=== PATIENT | female | born 1975 | race Caucasian/White ===

== ENCOUNTER 2025-02-11 18:31 | Observation (INO) ==
[2025-02-11] MEDS: SODIUM CHLORIDE 0.9% 1,000 ML IV ONE (19:28)
[2025-02-11] MEDS: KETOROLAC TROMETHAMINE 15 MG/ML VIAL IV ONE (19:32)
[2025-02-11] MEDS: ONDANSETRON INJ 2 MG/ML 2 ML VIAL IV STA (19:32)
--- NOTE | 2025-02-11 19:32 | Emergency Department Note ---
Impression & Plan Acute cholecystitis ED Provider Note NAME: YOGESH NASCIMENTO AGE: 49 SEX: F : 1975 ARRIVES VIA: Walk-In INFORMANT: Patient, ED PROVIDER(S): Isabel Hurtado MD CHIEF COMPLAINT: Nausea, vomiting HPI: This is a 49-year-old female presenting for nausea, vomiting abdominal pain. Patient notes that she has been on Zepbound for the past few months lost about 40 pounds. She notes that today around 11 AM she began having sudden onset severe nausea with vomiting patient has upper quad abdominal pain. She notes she is vomiting green bile. She notes no fevers or chills. No sinus congestion at this time. She did have a upper respiratory infection last week. No diarrhea or constipation. ROS: See above HPI for pertinent positives & negatives. A total of 10 systems reviewed and were otherwise negative. PAST MEDICAL HISTORY: See Below PAST SURGICAL HISTORY: See Below FAMILY HISTORY: See Below SOCIAL HISTORY: See Below HOME MEDICATIONS: See Below ALLERGIES: See Below VITALS: See Below PHYSICAL EXAMINATION: General: resting comfortably in no acute distress Head: Normocephalic and atraumatic Eyes: Normal inspection, extraocular muscles intact Ear, nose, throat: Normal external exam Neck: Normal range of motion Respiratory: lungs clear to auscultation bilaterally Cardiovascular: Regular rate/rhythm, no murmur GI: Right upper and epigastric tenderness to palpation without rebound Extremities: nontender, moves all extremities Neuro: The patient awake and alert, appropriately conversive, no focal deficits, symmetric faces Skin: Warm, dry, and intact MEDICAL DECISION MAKING: This is a 49-year-old female present for nausea, vomiting abdominal pain. Consider pancreatitis as patient is on Zepbound also consider cholecystitis. Consider appendicitis, diverticulitis, bowel perforation. -Blood reviewed with a leukocytosis to over 18 with left shift, otherwise slight hypokalemia. -No transaminitis or lipase elevation -CT imaging reveals acute cholecystitis. Exam is consistent with this with right upper quadrant tenderness/Guevara sign -Will give Zosyn at this time -Discussed Dr. Diaz general surgeon on-call, who will perform surgery in the a.m. -Discussed with Dr. Lemons for admission Differential diagnosis: Appendicitis, cholecystitis, diverticulitis, bowel perforation Diagnostics interpreted by me: ECG: None Cardiac Monitoring: An order was placed for continuous cardiac monitoring. The monitor shows a rate of 70 with sinus rhythm. 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 Degenerative disc disease History of COVID-19 Nov 06, 2021> tested with [facility] by [employer]> continues with mild cough, > had fever, loss of taste and smell > not hospitalized Hx of colonic polyps Lumbar herniated disc Lyme disease hx of Surgical History History of arthroscopy of right knee History of colonoscopy History of dilatation and curettage History of tooth extraction wisdom teeth 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 this, was due to Family History Father Family history of reaction to anesthesia nausea/vomiting Brother Family history of diabetes mellitus 2 brothers with type 1 Mother Family hx colonic polyps Family/Other Family hx colonic polyps maternal aunt Social History Smoking Status: Never smoker Cigarettes Per Day: just smokes off and on every few mos or so; Second Hand Exposure: No; Do You Dip or Chew Tobacco: No; Hx Alcohol Use: Yes Alcohol type: hard liquor Hx Substance Use: No Preferred Language: Greenlandic Communication Ability: Effective [employer] Supervisor Required: No Beliefs That Will Affect Care: None Current Living Situation: Family Current Living Situation Comment: Lives with son Feels Safe at Home: Yes Assistive Devices: Contacts and Glasses Allergies Allergies Allergy/AdvReac Type Severity Reaction Status Date / Time bupropion Allergy Unknown ITCHING Verified 01/17/22 08:30 Sulfa (Sulfonamide Allergy Unknown CORTEZ Verified 01/17/22 08:30 Antibiotics) JULIEN'S FLU SHOTS Allergy Unknown GOT REALLY Uncoded 01/17/22 08:30 SICK WITH A RASH Home Meds Home Medications Medication Instructions Recorded Confirmed ascorbic acid (vitamin C) 500 mg 500 mg PO HS 10/12/18 01/17/22 chewable tablet (Vitamin C) cetirizine 10 mg tablet (Zyrtec) 10 mg PO BID 10/12/18 01/17/22 cholecalciferol (vitamin D3) 25 1,000 unit PO HS 10/12/18 01/17/22 mcg (1,000 unit) capsule cyclobenzaprine 10 mg tablet 10 mg PO TID PRN Muscle Spasm 10/12/18 01/10/22 montelukast 10 mg tablet 10 mg PO DAILY PRN Allergy Symptoms 10/12/18 01/17/22 (Singulair) multivitamin with minerals-folic 1 tab PO HS 10/12/18 01/17/22 acid 200 mcg chewable tablet (Women's Multivitamin Gummies) omega 5-cgi-lub-fish oil 1,000 mg 1 cap PO HS 10/12/18 01/17/22 (120 mg-180 mg) capsule (Fish Oil) vitamin B complex 1 cap PO HS 10/12/18 01/17/22 collagen,hydrolysate 500 mg-biotin 1 cap PO HS 01/10/22 01/17/22 800 mcg-ascorbic acid 50 mg capsule (Collagen 1500 Plus C) ibuprofen 200 mg tablet 200 mg PO Q6H PRN Pain 01/10/22 01/17/22 Results & Data (ED) Vital Signs Vital Signs - 24 hr 02/11/25 18:35 02/11/25 18:42 02/11/25 19:40 Temperature 36.0 C L Temperature Source Temporal Artery Scan Pulse Rate 85 70 72 Pulse Rate [Left Radial] Pulse Rate from SpO2 Sensor Pulse Rhythm [Left Radial] Pulse Strength [Left Radial] Respiratory Rate 20 20 Respiratory Effort / Characteristics Respiratory Depth Respiratory Pattern Blood Pressure 190/100 H Blood Pressure [Right Arm] Blood Pressure Mean 130 Blood Pressure Mean [Right Arm] Blood Pressure Position [Right Arm] Pulse Oximetry 99 99 Oxygen Delivery Method Room Air Room Air Sepsis Recent Fever Within 48 Hours No Sepsis New/Unexplained Change in Mental Status N/A Sepsis Action Taken by Nursing No Action Required 02/11/25 20:32 02/11/25 22:00 02/11/25 23:00 Temperature Temperature Source Pulse Rate 76 Pulse Rate [Left Radial] 85 75 Pulse Rate from SpO2 Sensor 76 Pulse Rhythm [Left Radial] Regular Regular Pulse Strength [Left Radial] Normal Normal Respiratory Rate 17 16 20 Respiratory Effort / Characteristics Non-Labored Non-Labored Respiratory Depth Normal Normal Respiratory Pattern Regular Regular Blood Pressure Blood Pressure [Right Arm] 135/85 118/76 Blood Pressure Mean Blood Pressure Mean [Right Arm] 101 90 Blood Pressure Position [Right Arm] Lying Lying Pulse Oximetry 95 92 95 Oxygen Delivery Method Room Air Room Air Sepsis Recent Fever Within 48 Hours Sepsis New/Unexplained Change in Mental Status Sepsis Action Taken by Nursing 02/11/25 23:32 02/12/25 00:03 Temperature Temperature Source Pulse Rate 71 70 Pulse Rate [Left Radial] Pulse Rate from SpO2 Sensor 70 Pulse Rhythm [Left Radial] Pulse Strength [Left Radial] Respiratory Rate 15 Respiratory Effort / Characteristics Respiratory Depth Respiratory Pattern Blood Pressure 130/84 Blood Pressure [Right Arm] Blood Pressure Mean 99 Blood Pressure Mean [Right Arm] Blood Pressure Position [Right Arm] Pulse Oximetry 94 Oxygen Delivery Method Room Air Sepsis Recent Fever Within 48 Hours Sepsis New/Unexplained Change in Mental Status Sepsis Action Taken by Nursing Laboratory Data 02/11/25 19:00 02/11/25 19:00 Lab Results 02/11/25 Range/Units 19:00 WBC 18.34 H (4.8-10.8) K/ul RBC 5.03 (4.20-5.40) M/uL Hgb 16.2 H (12.0-16.0) g/dl Hct 44.7 (37.0-47.0) % MCV 88.9 (80.0-100.0) fL MCH 32.2 (25.0-34.0) pg MCHC 36.2 H (32.0-36.0) g/dL RDW Std Deviation 40.3 (36.4-46.3) fL RDW Coeff of Tanna 12.3 (11.5-14.5) % Plt Count 328 (130-400) K/uL MPV 10.7 (9.4-12.4) fL Immature Gran % (Auto) 0.4 % Neut % (Auto) 87.4 % Lymph % (Auto) 9.9 % Leslie % (Auto) 2.1 % Eos % (Auto) 0.0 % Baso % (Auto) 0.2 % Neut # (Auto) 16.02 H (1.40-6.50) K/uL Lymph # (Auto) 1.82 (1.20-3.40) K/uL Leslie # (Auto) 0.38 (0.11-0.59) K/uL Eos # (Auto) 0.00 (0.00-0.50) K/uL Baso # (Auto) 0.04 (0.00-0.20) K/uL Immature Gran # (Auto) 0.08 (0.01-0.20) K/uL Sodium 136 (136-145) mmol/L Potassium 3.3 L (3.5-5.1) mmol/L Chloride 102 (98-107) mmol/L Carbon Dioxide 25 (21-32) mmol/L Anion Gap 9 (3-11) BUN 7 (6-23) mg/dl Creatinine 0.72 (0.6-1.2) mg/dl Est Cr Clr Drug Dosing 125.7 ml/min eGFR 103.71 BUN/Creatinine Ratio 9.7 L (10-20) Glucose 136 H (70-99(Fasting)) mg/dl Calcium 9.1 (8.6-10.3) mg/dl Total Bilirubin 0.5 (0.2-1.0) mg/dl AST 13 (13-39) U/L ALT 12 (7-52) U/L Alkaline Phosphatase 95 (34-104) U/L Total Protein 7.1 (6.0-8.3) gm/dl Albumin 4.1 (3.4-5.0) gm/dl Globulin 3.0 (2.5-4.0) gm/dl Albumin/Globulin Ratio 1.4 (0.9-2) Lipase 7 L (11-82) U/L Administered Medications Discontinued Medications Hydromorphone HCl (Hydromorphone Inj 0.5 Mg/0.5 Ml Syr) 0.5 mg IV NOW STA Stop: 02/11/25 20:22 Last Admin: 02/11/25 20:38 Dose: 0.5 mg Documented By: SONYA Sodium Chloride (Nss) 1,000 mls @ 999 mls/hr IV .Q1H1M ONE Stop: 02/11/25 19:42 Last Infusion: 02/11/25 20:44 Dose: Infused Documented By: Admin: 02/11/25 19:28 Dose: 999 mls/hr Documented By: SONYA Piperacillin Sod/Tazobactam Sod (Zosyn) 4.5 gm in 100 mls @ 200 mls/hr IV NOW ONE; Protocol Stop: 02/12/25 00:21 Last Infusion: 02/12/25 00:24 Dose: Infused Documented By: Admin: 02/12/25 00:05 Dose: 200 mls/hr Documented By: AMIRA Ioversol (Optiray 320 100ml) 94 ml IV ONCE ONE Stop: 02/11/25 20:45 Last Admin: 02/11/25 20:44 Dose: 94 ml Documented By: JACKIE Ketorolac Tromethamine (Ketorolac Tromethamine 15 Mg/Ml Vial) 15 mg IV NOW ONE Stop: 02/11/25 19:24 Last Admin: 02/11/25 19:32 Dose: 15 mg Documented By: SONYA Ondansetron HCl (Ondansetron Inj 2 Mg/Ml 2 Ml Vial) 4 mg IV NOW STA Stop: 02/11/25 19:24 Last Admin: 02/11/25 19:32 Dose: 4 mg Documented By: SONYA Imaging Data Radiologist's Impression: Abdomen/Pelvis CT 02/11/25 19:23 Exam(s): CT ABDOMEN + PELVIS With Contrast IV Amt: 94 mls optiray 320 EXAM: CT Abdomen and Pelvis With Intravenous Contrast CLINICAL HISTORY: Reason for exam: RUQ/Epigastric pain, ailyn vs pancr vs appi. TECHNIQUE: Axial computed tomography images of the abdomen and pelvis with intravenous contrast. CTDI is 28.14 mGy and DLP is 1451.1 mGy-cm. Automated exposure control was utilized for the study. A dose lowering technique was utilized adhering to the principles of ALARA. CONTRAST: Patient received 94 mls optiray 320 of IV contrast COMPARISON: No relevant prior studies available. FINDINGS: Lung bases: Unremarkable. No mass. No consolidation. ABDOMEN: Liver: Unremarkable. No mass. Gallbladder and bile ducts: There is moderate gallbladder distention, mild gall bladder wall thickening and minimal pericholecystic stranding consistent with cholecystitis. Correlation with gallbladder ultrasound should be considered. No ductal dilation. Pancreas: Unremarkable. No mass. No ductal dilation. Spleen: Unremarkable. No splenomegaly. Adrenals: Unremarkable. No mass. Kidneys and ureters: Unremarkable. No solid mass. No hydronephrosis. Stomach and bowel: Unremarkable. No obstruction. No mucosal thickening. PELVIS: Appendix: No findings to suggest acute appendicitis. Bladder: Unremarkable. No mass. Reproductive: Unremarkable as visualized. ABDOMEN and PELVIS: Intraperitoneal space: Unremarkable. No free air. No significant fluid collection. Bones/joints: There is moderately advanced L5-S1 degenerative disc space narrowing and a circumferential disc osteophyte complex. No acute fracture. No dislocation. Soft tissues: Unremarkable. Vasculature: Unremarkable. No abdominal aortic aneurysm. Lymph nodes: Unremarkable. No enlarged lymph nodes. IMPRESSION: There is moderate gallbladder distention, mild gall bladder wall thickening and minimal pericholecystic stranding consistent with cholecystitis. Correlation with gallbladder ultrasound should be considered. Electronically signed by: Nico Ayoub MD 02/11/25 23:01 PM Discharge Plan Visit Data Chief Complaint: Abdominal Pain Stated Complaint: VOMITING UP BILE, GALLBLADDER, ABD PAIN ED Provider: Isabel Hurtado Discharge Problem: Acute cholecystitis Forms Stand Alone Forms: [facility] [employer] Prescriptions Prescriptions: No Action cyclobenzaprine 10 mg Tablet 10 mg PO TID PRN (Reason: Muscle Spasm) cetirizine [Zyrtec] 10 mg Tablet 10 mg PO BID ascorbic acid (vitamin C) [Vitamin C] 500 mg Tablet,Chewable 500 mg PO HS montelukast [Singulair] 10 mg Tablet 10 mg PO DAILY PRN (Reason: Allergy Symptoms) vitamin B complex Capsule 1 cap PO HS cholecalciferol (vitamin D3) 1,000 unit Capsule 1,000 unit PO HS omega 5-psj-ikp-fish oil [Fish Oil] 1,000 mg (120 mg-180 mg) Capsule 1 cap PO HS Women's Multivitamin Gummies 200 mcg Tablet,Chewable 1 tab PO HS ibuprofen 200 mg Tablet 200 mg PO Q6H PRN (Reason: Pain) Collagen 1500 Plus C 500 mg-800 mcg- 50 mg Capsule 1 cap PO HS Referrals Referrals: Ted Irving MD [Primary Care Provider] -
[2025-02-11 19:33] LABS: Basophils # (auto) 0.04 K/uL (0.00-0.20); Basophils % (auto) 0.2 %; Hematocrit (blood only) 44.7 % (37.0-47.0); Hemoglobin 16.2 g/dl (12.0-16.0); Immature Granulocytes # (auto) 0.08 K/uL (0.01-0.20); Immature Granulocytes % (auto) 0.4 %; Lymphocytes # (auto) 1.82 K/uL (1.20-3.40); Lymphocytes % (auto) 9.9 %; Mean Corpuscular Hemoglobin 32.2 pg (25.0-34.0); Mean Corpuscular Hgb Conc 36.2 g/dL (32.0-36.0); Mean Corpuscular Volume 88.9 fL (80.0-100.0); Mean Platelet Volume 10.7 fL (9.4-12.4); Monocytes # (auto) 0.38 K/uL (0.11-0.59); Monocytes % (auto) 2.1 %; Neutrophils # (auto) 16.02 K/uL (1.40-6.50); Neutrophils % (auto) 87.4 %; Platelet Count 328 K/uL (130-400); RDW Coefficient of Variation 12.3 % (11.5-14.5); RDW Standard Deviation 40.3 fL (36.4-46.3); Red Blood Count 5.03 M/uL (4.20-5.40); White Blood Count 18.34 K/ul (4.8-10.8)
[2025-02-11 19:42] LABS: Albumin Globulin Ratio 1.4 (0.9-2); Albumin Level 4.1 gm/dl (3.4-5.0); BUN Creatinine Ratio 9.7 (10-20); Bilirubin,Total 0.5 mg/dl (0.2-1.0); Calcium 9.1 mg/dl (8.6-10.3); Creatinine Clr Calc Pharmacy 125.7 ml/min; Potassium 3.3 mmol/L (3.5-5.1); Total Protein 7.1 gm/dl (6.0-8.3)
[2025-02-11] MEDS: HYDROmorphone INJ 0.5 MG/0.5 ML SYR IV STA (20:38)
[2025-02-11] MEDS: OPTIRAY 320 100ml IV ONE (20:44)
--- NOTE | 2025-02-11 23:03 | CT Scan Report ---
Exam(s): CT ABDOMEN + PELVIS With Contrast IV Amt: 94 mls optiray 320 EXAM: CT Abdomen and Pelvis With Intravenous Contrast CLINICAL HISTORY: Reason for exam: RUQ/Epigastric pain, ailyn vs pancr vs appi. TECHNIQUE: Axial computed tomography images of the abdomen and pelvis with intravenous contrast. CTDI is 28.14 mGy and DLP is 1451.1 mGy-cm. Automated exposure control was utilized for the study. A dose lowering technique was utilized adhering to the principles of ALARA. CONTRAST: Patient received 94 mls optiray 320 of IV contrast COMPARISON: No relevant prior studies available. FINDINGS: Lung bases: Unremarkable. No mass. No consolidation. ABDOMEN: Liver: Unremarkable. No mass. Gallbladder and bile ducts: There is moderate gallbladder distention, mild gall bladder wall thickening and minimal pericholecystic stranding consistent with cholecystitis. Correlation with gallbladder ultrasound should be considered. No ductal dilation. Pancreas: Unremarkable. No mass. No ductal dilation. Spleen: Unremarkable. No splenomegaly. Adrenals: Unremarkable. No mass. Kidneys and ureters: Unremarkable. No solid mass. No hydronephrosis. Stomach and bowel: Unremarkable. No obstruction. No mucosal thickening. PELVIS: Appendix: No findings to suggest acute appendicitis. Bladder: Unremarkable. No mass. Reproductive: Unremarkable as visualized. ABDOMEN and PELVIS: Intraperitoneal space: Unremarkable. No free air. No significant fluid collection. Bones/joints: There is moderately advanced L5-S1 degenerative disc space narrowing and a circumferential disc osteophyte complex. No acute fracture. No dislocation. Soft tissues: Unremarkable. Vasculature: Unremarkable. No abdominal aortic aneurysm. Lymph nodes: Unremarkable. No enlarged lymph nodes. IMPRESSION: There is moderate gallbladder distention, mild gall bladder wall thickening and minimal pericholecystic stranding consistent with cholecystitis. Correlation with gallbladder ultrasound should be considered. Electronically signed by: Nico Ayoub MD 02/11/25 23:01 PM
[2025-02-12] MEDS: PIPERACILLIN/TAZOBACTAM 4.5 GM/100 ML BAG IV ONE (00:05)
[2025-02-12] MEDS: SODIUM CHLORIDE 0.9% 1,000 ML IV ONE (00:30)
[2025-02-12] MEDS: HYDROmorphone INJ 0.5 MG/0.5 ML SYR IV STA (03:09)
[2025-02-12] MEDS ORDERED: CETIRIZINE HCL 10 MG TABLET PO PRN (03:51)
[2025-02-12] MEDS ORDERED: HYDROmorphone INJ 0.5 MG/0.5 ML SYR IV PRN (03:51)
[2025-02-12] MEDS ORDERED: ALBUTEROL HFA 8 GM INHALER INH PRN (03:51)
[2025-02-12] MEDS ORDERED: ONDANSETRON INJ 2 MG/ML 2 ML VIAL IV PRN ×2 (03:51→08:57)
--- NOTE | 2025-02-12 04:16 | History & Physical Report ---
Date of Service February 12, 2025 Assessment & Plan (1) Acute cholecystitis: Plan: 49-year-old female with past med history significant for prediabetes and morbid obesity comes because of right side abdominal pain and nausea and vomiting. Patient states abdominal pain started yesterday morning in the right upper quadrant region. At 11 AM patient started have a lot of nausea and vomiting. She was vomiting bile. Pain was very severe. Was feeling hot and cold. No diarrhea. Did did not micturate much because of poor oral intake. Denies chest pain or shortness of breath. No cough. No runny nose or sore throat. No earaches. Hemodynamics are okay.Patient is currently on Zepbound. Acute cholecystitis Presents with right sided abdominal pain and nausea and vomiting CT scan showing moderate gallbladder distention, mild gallbladder wall thickening and minimal pericholecystic stranding consistent with cholecystitis N.p.o., IV fluids, pain control IV Zosyn Surgery consult Morbid obesity Patient is on Zepbound Prediabetes Will follow HbA1c levels DVT prophylaxis SCDs Disposition Medical floor Full code. History of Present Illness Chief Complaint: Abdominal pain Primary Care Provider: Ted Irving MD 49-year-old female with past med history significant for prediabetes and morbid obesity comes because of right side abdominal pain and nausea and vomiting. Patient states abdominal pain started yesterday morning in the right upper quadrant region. At 11 AM patient started have a lot of nausea and vomiting. She was vomiting bile. Pain was very severe. Was feeling hot and cold. No diarrhea. Did did not micturate much because of poor oral intake. Denies chest pain or shortness of breath. No cough. No runny nose or sore throat. No earaches. Hemodynamics are okay.Patient is currently on Zepbound. Past medical history. As mentioned above Past surgical history. Colonoscopy. D&C after delivery. IUD insertion. Right knee arthroscopy. Social history. Quit smoking 2017. Smoked 0.3 pack a day for 7.9 years. Alcohol 1 drink of alcohol per week per epic. No drug use. Family history. Brother has hematochromatosis. Brother has diabetes. Father has hypertension. Mother has thyroid disorder. Paternal grandmother had breast cancer. Paternal grandfather had heart disorder. Aunt has diabetes. Allergies Allergy/AdvReac Type Severity Reaction Status Date / Time bupropion Allergy Unknown ITCHING Verified 01/17/22 08:30 Sulfa (Sulfonamide Allergy Unknown CORTEZ Verified 01/17/22 08:30 Antibiotics) JULIEN'S FLU SHOTS Allergy Unknown GOT REALLY Uncoded 01/17/22 08:30 SICK WITH A RASH Home Medications Medication Instructions Recorded Confirmed Type albuterol sulfate 90 mcg/actuation 2 puff inhalation Q6H PRN 02/12/25 02/12/25 History aerosol inhaler Shortness Of Breath Or Wheezing cetirizine 10 mg tablet (Zyrtec) 10 mg PO DAILY PRN Allergic 02/12/25 02/12/25 History Symptoms tirzepatide (weight loss) 10 10 mg subcut WK 02/12/25 02/12/25 History mg/0.5 mL subcutaneous pen injector (Zepbound) Past Med/Surg History Problem List Acute cholecystitis (Acute) History of colon polyps Encounter for pre-operative examination History of colon polyps Medical History Abdominal hernia Hx of colonic polyps History of COVID-19 Nov 06, 2021> tested with [facility] by [employer]> continues with mild cough, > had fever, loss of taste and smell > not hospitalized 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 Lumbar herniated disc Degenerative disc disease Lyme disease hx of Surgical History 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 this, was due to History of dilatation and curettage History of arthroscopy of right knee History of colonoscopy History of tooth extraction wisdom teeth Family History Father Family history of reaction to anesthesia nausea/vomiting Brother Family history of diabetes mellitus 2 brothers with type 1 Mother Family hx colonic polyps Family/Other Family hx colonic polyps maternal aunt Social History Smoking Status: Current some day smoker Cigarettes Per Day: just smokes off and on every few mos or so; Second Hand Exposure: No; Do You Dip or Chew Tobacco: No; Tobacco Cessation Education Requested by Patient: No Hx Alcohol Use: No Hx Substance Use: No Preferred Language: Syriac Communication Ability: Effective Lead Slot Technician Required: No Beliefs That Will Affect Care: None Current Living Situation: Family Current Living Situation Comment: Lives with son Other Information That Helps Us Care for You: No Feels Safe at Home: Yes Safety Concerns: Feels Safe At This Time Assistive Devices: None Review of Systems Review of Systems: All systems reviewed & are unremarkable except as noted in HPI & below Physical Exam Physical Exam: General- Not in distress. Head- atraumatic Eyes- PERRL. ENT- oropharynx clear Neck- supple, no JVD. Lungs- clear to auscultation no wheezing or crackles Heart- regular rhythm; no murmur, no gallop. Abdomen- normal bowel sounds, soft, mild ruq tenderness, no guarding, no distension. Extremities- no pretibial edema, no erythema seen. Neuro- alert, oriented PERRL, no facial palsy; no dysarthria; moves extremities Results & Data Results & Data Vital Signs (Past 12 Hours) Vital Signs Temp Pulse Pulse Resp BP BP Pulse Ox 02/12/25 01:12 74 13 136/81 94 02/12/25 00:03 70 15 130/84 94 02/11/25 23:32 71 02/11/25 23:00 76 20 95 02/11/25 22:00 75 16 118/76 92 02/11/25 20:32 85 17 135/85 95 02/11/25 19:40 72 02/11/25 18:42 70 20 99 02/11/25 18:35 36.0 C L 85 20 190/100 H 99 O2 Del Method 02/12/25 01:12 Room Air 02/12/25 00:03 Room Air 02/11/25 23:32 02/11/25 23:00 02/11/25 22:00 Room Air 02/11/25 20:32 Room Air 02/11/25 19:40 02/11/25 18:42 Room Air 02/11/25 18:35 Room Air Diagnostic Findings Laboratory Results WBC 18.34 K/ul (4.8-10.8) H 02/11/25 19:00 RBC 5.03 M/uL (4.20-5.40) 02/11/25 19:00 Hgb 16.2 g/dl (12.0-16.0) H 02/11/25 19:00 Hct 44.7 % (37.0-47.0) 02/11/25 19:00 MCV 88.9 fL (80.0-100.0) 02/11/25 19:00 MCH 32.2 pg (25.0-34.0) 02/11/25 19:00 MCHC 36.2 g/dL (32.0-36.0) H 02/11/25 19:00 RDW Std Deviation 40.3 fL (36.4-46.3) 02/11/25 19:00 RDW Coeff of Tanna 12.3 % (11.5-14.5) 02/11/25 19:00 Plt Count 328 K/uL (130-400) 02/11/25 19:00 MPV 10.7 fL (9.4-12.4) 02/11/25 19:00 Immature Gran % (Auto) 0.4 % 02/11/25 19:00 Neut % (Auto) 87.4 % 02/11/25 19:00 Lymph % (Auto) 9.9 % 02/11/25 19:00 [place] % (Auto) 2.1 % 02/11/25 19:00 Eos % (Auto) 0.0 % 02/11/25 19:00 Baso % (Auto) 0.2 % 02/11/25 19:00 Neut # (Auto) 16.02 K/uL (1.40-6.50) H 02/11/25 19:00 Lymph # (Auto) 1.82 K/uL (1.20-3.40) 02/11/25 19:00 [place] # (Auto) 0.38 K/uL (0.11-0.59) 02/11/25 19:00 Eos # (Auto) 0.00 K/uL (0.00-0.50) 02/11/25 19:00 Baso # (Auto) 0.04 K/uL (0.00-0.20) 02/11/25 19:00 Immature Gran # (Auto) 0.08 K/uL (0.01-0.20) 02/11/25 19:00 Sodium 136 mmol/L (136-145) 02/11/25 19:00 Potassium 3.3 mmol/L (3.5-5.1) L 02/11/25 19:00 Chloride 102 mmol/L (98-107) 02/11/25 19:00 Carbon Dioxide 25 mmol/L (21-32) 02/11/25 19:00 Anion Gap 9 (3-11) 02/11/25 19:00 BUN 7 mg/dl (6-23) 02/11/25 19:00 Creatinine 0.72 mg/dl (0.6-1.2) 02/11/25 19:00 Est Cr Clr Drug Dosing 125.7 ml/min 02/11/25 19:00 eGFR 103.71 02/11/25 19:00 BUN/Creatinine Ratio 9.7 (10-20) L 02/11/25 19:00 Glucose 136 mg/dl (70-99(Fasting)) H 02/11/25 19:00 Calcium 9.1 mg/dl (8.6-10.3) 02/11/25 19:00 Total Bilirubin 0.5 mg/dl (0.2-1.0) 02/11/25 19:00 AST 13 U/L (13-39) 02/11/25 19:00 ALT 12 U/L (7-52) 02/11/25 19:00 Alkaline Phosphatase 95 U/L (34-104) 02/11/25 19:00 Total Protein 7.1 gm/dl (6.0-8.3) 02/11/25 19:00 Albumin 4.1 gm/dl (3.4-5.0) 02/11/25 19:00 Globulin 3.0 gm/dl (2.5-4.0) 02/11/25 19:00 Albumin/Globulin Ratio 1.4 (0.9-2) 02/11/25 19:00 Lipase 7 U/L (11-82) L 02/11/25 19:00 Impressions Abdomen/Pelvis CT 02/11/25 19:23 Exam(s): CT ABDOMEN + PELVIS With Contrast IV Amt: 94 mls optiray 320 EXAM: CT Abdomen and Pelvis With Intravenous Contrast CLINICAL HISTORY: Reason for exam: RUQ/Epigastric pain, ailyn vs pancr vs appi. TECHNIQUE: Axial computed tomography images of the abdomen and pelvis with intravenous contrast. CTDI is 28.14 mGy and DLP is 1451.1 mGy-cm. Automated exposure control was utilized for the study. A dose lowering technique was utilized adhering to the principles of ALARA. CONTRAST: Patient received 94 mls optiray 320 of IV contrast COMPARISON: No relevant prior studies available. FINDINGS: Lung bases: Unremarkable. No mass. No consolidation. ABDOMEN: Liver: Unremarkable. No mass. Gallbladder and bile ducts: There is moderate gallbladder distention, mild gall bladder wall thickening and minimal pericholecystic stranding consistent with cholecystitis. Correlation with gallbladder ultrasound should be considered. No ductal dilation. Pancreas: Unremarkable. No mass. No ductal dilation. Spleen: Unremarkable. No splenomegaly. Adrenals: Unremarkable. No mass. Kidneys and ureters: Unremarkable. No solid mass. No hydronephrosis. Stomach and bowel: Unremarkable. No obstruction. No mucosal thickening. PELVIS: Appendix: No findings to suggest acute appendicitis. Bladder: Unremarkable. No mass. Reproductive: Unremarkable as visualized. ABDOMEN and PELVIS: Intraperitoneal space: Unremarkable. No free air. No significant fluid collection. Bones/joints: There is moderately advanced L5-S1 degenerative disc space narrowing and a circumferential disc osteophyte complex. No acute fracture. No dislocation. Soft tissues: Unremarkable. Vasculature: Unremarkable. No abdominal aortic aneurysm. Lymph nodes: Unremarkable. No enlarged lymph nodes. IMPRESSION: There is moderate gallbladder distention, mild gall bladder wall thickening and minimal pericholecystic stranding consistent with cholecystitis. Correlation with gallbladder ultrasound should be considered. Electronically signed by: Nico Ayoub MD 02/11/25 23:01 PM Code Status & VTE Plan VTE Prophylaxis Plan VTE Prophylaxis will be ordered: Yes
[2025-02-12] MEDS: SODIUM CHLORIDE 0.9% 1,000 ML IV SCH (04:32)
--- NOTE | 2025-02-12 04:50 | Surgery Consultation ---
Date of Consultation February 12, 2025 Assessment & Plan (1) Acute cholecystitis: Plan laparoscopic cholecystectomy and cholangiogram possible open Plan The present situation was discussed with the patient namely dishes gallbladder is inflamed and recommended laparoscopic cholecystectomy possible open cholangiogram She would like to proceed with surgery Risk and complication explained to her bleeding infection converting to an open procedure Anticipated recovery time including hospital stay and close discharge instructions were all discussed with the patient's All question answered Will have the permit signed in the preop area History of Present Illness Reason for Consultation: Acute cholecystitis Attending Physician: Natalie Leary MD History of Present Illness This 49-year-old female presented to the emergency room earlier today with right upper quadrant pain nausea and bilious vomiting. She recently had 40 pound weight loss after having started on Zepbound day after Thanksgiving she did eat Thanksgiving dinner stating only had some mashed potatoes and [place] sprouts and had no issue at that time with any nausea right upper quadrant pain She has a strong family history of gallbladder disease her mother and other people in her family fact that her gallbladder removed Also stating that since she was 22 years old there was a question of starting gallbladder issues that time Only surgery she had was from the surgery tonsillectomy She has had colonoscopy within the last few years Allergies Allergy/AdvReac Type Severity Reaction Status Date / Time bupropion Allergy Unknown ITCHING Verified 01/17/22 08:30 Sulfa (Sulfonamide Allergy Unknown CORTEZ Verified 01/17/22 08:30 Antibiotics) JULIEN'S FLU SHOTS Allergy Unknown GOT REALLY Uncoded 01/17/22 08:30 SICK WITH A RASH Home Medications Medication Instructions Recorded Confirmed Type albuterol sulfate 90 mcg/actuation 2 puff inhalation Q6H PRN 02/12/25 02/12/25 History aerosol inhaler Shortness Of Breath Or Wheezing cetirizine 10 mg tablet (Zyrtec) 10 mg PO DAILY PRN Allergic 02/12/25 02/12/25 History Symptoms tirzepatide (weight loss) 10 10 mg subcut WK 02/12/25 02/12/25 History mg/0.5 mL subcutaneous pen injector (Zepbound) Patient History Medical History Abdominal hernia Hx of colonic polyps History of COVID-19 Nov 06, 2021> tested with [facility] by [employer]> continues with mild cough, > had fever, loss of taste and smell > not hospitalized 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 Lumbar herniated disc Degenerative disc disease Lyme disease hx of Surgical History History of arthroscopy of right knee History of colonoscopy History of dilatation and curettage History of tooth extraction wisdom teeth 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 this, was due to Family History Father Family history of reaction to anesthesia nausea/vomiting Brother Family history of diabetes mellitus 2 brothers with type 1 Mother Family hx colonic polyps Family/Other Family hx colonic polyps maternal aunt Social History Smoking Status: Never smoker Cigarettes Per Day: just smokes off and on every few mos or so; Second Hand Exposure: No; Do You Dip or Chew Tobacco: No; Hx Alcohol Use: Yes Alcohol type: hard liquor Hx Substance Use: No Preferred Language: South Korean Communication Ability: Effective Search Engineer Required: No Beliefs That Will Affect Care: None Current Living Situation: Family Current Living Situation Comment: Lives with son Feels Safe at Home: Yes Assistive Devices: Contacts and Glasses Review of Systems Review of Systems: Other than the symptomatology related to from GI with some right upper quadrant pain probably longstanding 20 years she denies any chest pain shortness of breath with activity She does suffer some seasonal allergies takes Zyrtec Physical Exam Physical Exam: Alert coherent pleasant in no distress Sclera is nonicteric No cervical lymphadenopathy trachea midline Lungs clear to auscultation bilaterally no rhonchi or rails Heart no murmurs or gallop regular rate Abdomen tenderness right upper quadrant although compared to earlier in the day the tenderness is less rest of the abdomen is negative but prominent Extremities no calf tenderness no pedal edema Results & Data Vital Signs (Past 12 Hours) Vital Signs Temp Pulse Pulse Resp BP BP BP 02/12/25 03:51 37.5 C 71 16 106/69 02/12/25 02:57 69 18 134/79 02/12/25 01:12 74 13 136/81 02/12/25 00:03 70 15 130/84 02/11/25 23:32 71 02/11/25 23:00 76 20 03/14/25 22:00 75 16 118/76 02/11/25 20:32 85 17 135/85 02/11/25 19:40 72 02/11/25 18:42 70 20 02/11/25 18:35 36.0 C L 85 20 190/100 H Pulse Ox O2 Del Method 02/12/25 03:51 93 Room Air 02/12/25 02:57 95 Room Air 02/12/25 01:12 94 Room Air 02/12/25 00:03 94 Room Air 02/11/25 23:32 02/11/25 23:00 95 02/11/25 22:00 92 Room Air 02/11/25 20:32 95 Room Air 02/11/25 19:40 02/11/25 18:42 99 Room Air 02/11/25 18:35 99 Room Air Laboratory Results Noted Diagnostic Findings Noted PG Care Time/CCT Total # of Minutes Spent Total Time Spent with Patient: Total time spent is greater than 50% in coordination of care (as documented) at patient's floor/unit and/or counseling patient: Coding Level of Care Code 02930 IN/OBS CONSULT LVL 4,60M Diagnoses Acute cholecystitis K81.0
[2025-02-12 06:57] LABS: Appearance Urine Clear (Clear); Bacteria Urine Automated None Seen (None Seen); Bilirubin Urine Negative (Negative); Blood Urine Negative (Negative); Cast Urine Automated 0-2 /lpf (0-2); Color Urine Yellow; Glucose Urine UA Negative (Negative); Ketones Urine Negative (Negative); Leukocyte Esterase Urine Negative (Negative); Nitrite Urine Negative (Negative); Protein Urine 1+ (Negative); RBC Urine Automated 0-2 /hpf (0-2); Specific Gravity Urine > 1.045 (1.000-1.030); Urobilinogen Urine Negative (Negative); WBC Urine Automated 0-5 /hpf (0-5)
[2025-02-12 07:23] LABS: Basophils # (auto) 0.04 K/uL (0.00-0.20); Basophils % (auto) 0.3 %; Eosinophils # (auto) 0.08 K/uL (0.00-0.50); Eosinophils % (auto) 0.5 %; Hematocrit (blood only) 40.9 % (37.0-47.0); Hemoglobin 13.8 g/dl (12.0-16.0); Immature Granulocytes # (auto) 0.07 K/uL (0.01-0.20); Immature Granulocytes % (auto) 0.5 %; Lymphocytes # (auto) 4.02 K/uL (1.20-3.40); Lymphocytes % (auto) 27.1 %; Mean Corpuscular Hemoglobin 30.8 pg (25.0-34.0); Mean Corpuscular Hgb Conc 33.7 g/dL (32.0-36.0); Mean Corpuscular Volume 91.3 fL (80.0-100.0); Mean Platelet Volume 10.3 fL (9.4-12.4); Monocytes # (auto) 0.96 K/uL (0.11-0.59); Monocytes % (auto) 6.5 %; Neutrophils # (auto) 9.64 K/uL (1.40-6.50); Neutrophils % (auto) 65.1 %; Platelet Count 281 K/uL (130-400); RDW Coefficient of Variation 12.9 % (11.5-14.5); RDW Standard Deviation 42.2 fL (36.4-46.3); Red Blood Count 4.48 M/uL (4.20-5.40); White Blood Count 14.81 K/ul (4.8-10.8)
[2025-02-12 07:38] LABS: Albumin Level 3.3 gm/dl (3.4-5.0); BUN Creatinine Ratio 11.9 (10-20); Bilirubin Direct 0.1 mg/dl (0-0.2); Bilirubin,Total 0.5 mg/dl (0.2-1.0); Calcium 7.9 mg/dl (8.6-10.3); Magnesium 1.9 mg/dl (1.7-2.4); Potassium 3.3 mmol/L (3.5-5.1); Total Protein 5.6 gm/dl (6.0-8.3)
--- NOTE | 2025-02-12 07:45 | Anesthesiology Consultation ---
Date of Service February 12, 2025 Assessment & Plan Chart Review Chart Review: Acceptable Risk for Surgery and Patient NOT seen in Pre Admission Testing Consults Requested none ASA [id number] Proposed Anesthesia Anesthesia Type: General History Surgery Operation Date: 02/12/25 09:00 Proposed Procedures p Laparoscopic Cholecystectomy - Sebastian Diaz MD, FACS Height/Weight Height: 5 ft 7 in Weight: 113.6 kg Allergies Allergy/AdvReac Type Severity Reaction Status Date / Time bupropion Allergy Unknown ITCHING Verified 01/17/22 08:30 Sulfa (Sulfonamide Allergy Unknown CORTEZ Verified 01/17/22 08:30 Antibiotics) JULIEN'S FLU SHOTS Allergy Unknown GOT REALLY Uncoded 01/17/22 08:30 SICK WITH A RASH Medications Home Medications Medication Instructions Recorded Confirmed Last Taken albuterol sulfate 90 mcg/actuation 2 puff inhalation Q6H PRN 02/12/25 02/12/25 Unknown aerosol inhaler Shortness Of Breath Or Wheezing cetirizine 10 mg tablet (Zyrtec) 10 mg PO DAILY PRN Allergic 02/12/25 02/12/25 Unknown Symptoms tirzepatide (weight loss) 10 10 mg subcut WK 02/12/25 02/12/25 Unknown mg/0.5 mL subcutaneous pen injector (Zepbound) Active Medications Generic Name Dose Route Start Last Admin Trade Name Freq PRN Reason Stop Dose Admin Sodium Chloride 1,000 mls @ 125 mls/hr 02/12/25 03:51 02/12/25 04:32 Nss IV 02/13/25 03:50 125 mls/hr .Q8H LUANA Administration Past Medical History Medical History Abdominal hernia Hx of colonic polyps History of COVID-19 Nov 06, 2021> tested with [facility] by [employer]> continues with mild cough, > had fever, loss of taste and smell > not hospitalized 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 Asthma Family Hx/o PONV ? 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 this, was due to History of dilatation and curettage History of arthroscopy of right knee History of colonoscopy History of tooth extraction wisdom teeth Past Anesthesia History No Hx of Anesthesia Complications and No Family Hx of Anesthesia Complications History of PONV No Hx of PONV and No Hx of Motion Sickness Social History Smoking Status: Current some day smoker tobacco type: cigarettes Smoking cigarettes per day: just smokes off and on every few mos or so Do You Dip or Chew Tobacco: No Hx Alcohol Use: No Alcohol type: hard liquor alcohol intake frequency: holidays/special occasions only Hx Substance Use: No substance use type: does not use Physical Exam Vital Signs Last Vital Signs Temp 36.8 C 02/12/25 06:58 Pulse 83 02/12/25 06:58 Resp 16 02/12/25 06:58 BP 111/71 02/12/25 06:58 Pulse Ox 92 02/12/25 06:58 O2 Del Method Room Air 02/12/25 06:58 Testing Laboratory Results 02/12/25 06:58 02/12/25 06:58 Urine Color Yellow 02/12/25 03:13 Urine Appearance Clear (Clear) 02/12/25 03:13 Urine pH 6.0 (4.5-7.5) 02/12/25 03:13 Ur Specific [place] > 1.045 (1.000-1.030) H 02/12/25 03:13 Urine Protein 1+ (Negative) H 02/12/25 03:13 Urine Glucose (UA) Negative (Negative) 02/12/25 03:13 Urine Ketones Negative (Negative) 02/12/25 03:13 Urine Nitrite Negative (Negative) 02/12/25 03:13 Ur Leukocyte Esterase Negative (Negative) 02/12/25 03:13 Urine WBC (Auto) 0-5 /hpf (0-5) 02/12/25 03:13 Urine RBC (Auto) 0-2 /hpf (0-2) 02/12/25 03:13 U Hyaline Cast (Auto) 0-2 /lpf (0-2) 02/12/25 03:13 U Epithel Cells (Auto) 3-5 /hpf (0-2) H 02/12/25 03:13 Urine Bacteria (Auto) None Seen (None Seen) 02/12/25 03:13
[2025-02-12 08:00] LABS: Estimated Average Glucose 105 mg/dl; Hemoglobin A1C 5.3 % (4.5-5.6)
[2025-02-12] MEDS ORDERED: KETOROLAC 30 MG/ML VIAL ONE (08:48)
[2025-02-12] MEDS ORDERED: MIDAZOLAM HCL 1 MG/ML 2ML VIAL ONE (08:48)
[2025-02-12] MEDS ORDERED: ROCURONIUM BROMIDE 10 MG/ML 5 ML VIAL IV ONE ×3 (08:48→10:14)
[2025-02-12] MEDS ORDERED: DEXAMETHASONE SOD INJ 4 MG/ML VIAL ONE (08:48)
[2025-02-12] MEDS ORDERED: LIDOCAINE 2% 2 ML VIAL/AMP(20MG/ML) INFIL ONE (08:48)
[2025-02-12] MEDS ORDERED: SUGAMMADEX SODIUM 200 MG/2 ML VIAL IV ONE ×2 (08:48→10:38)
[2025-02-12] MEDS ORDERED: fentaNYL citrate PF 100 MCG/2 ML VIAL ONE ×2 (08:48→09:33)
[2025-02-12] MEDS ORDERED: ONDANSETRON INJ 2 MG/ML 2 ML VIAL ONE ×2 (08:48→10:37)
[2025-02-12] MEDS ORDERED: PROPOFOL IV EMULSION 10 MG/ML 20 ML VIAL IV ONE (08:48)
[2025-02-12] MEDS ORDERED: ATROPINE SULFATE 0.1 MG/ML 10ML SYR IV PRN (08:57)
[2025-02-12] MEDS ORDERED: fentaNYL citrate PF 100 MCG/2 ML VIAL IV PRN (08:57)
[2025-02-12] MEDS ORDERED: PROMETHAZINE HCL 6.25 MG in SODIUM CHLORIDE 0.9% 50 ML IV PRN (08:57)
[2025-02-12] MEDS ORDERED: FLUMAZENIL 0.1 MG/1 ML 10 ML VIAL IV PRN (08:57)
[2025-02-12] MEDS ORDERED: HYDROmorphone INJ 1 MG/ML SYRINGE IV PRN (08:57)
[2025-02-12] MEDS ORDERED: LABETALOL HCL IV 5 MG/ML 20ML IV PRN (08:57)
[2025-02-12] MEDS ORDERED: ePHEDrine sulfate 50 MG/ML AMP IV PRN (08:57)
[2025-02-12] MEDS ORDERED: NALOXONE HCL 0.4 MG/1 ML VIAL/CARP IV PRN (08:57)
[2025-02-12] MEDS: PIPERACILLIN/TAZOBACTAM 4.5 GM/100 ML BAG IV SCH (09:07)
[2025-02-12] MEDS: EPINEPHrine INJ 1 MG/ML AMP ONE (09:44)
[2025-02-12] MEDS ORDERED: LABETALOL HCL IV 5 MG/ML 20ML IV ONE (09:58)
[2025-02-12] MEDS: IOVERSOL 50ml IV ONE (10:45)
[2025-02-12] MEDS: LIDOCAINE 1% LOCAL 20 ML VIAL ONE (10:46)
--- NOTE | 2025-02-12 10:49 | Post Operative Brief Note ---
Immediate Post Op Note Date of Surgery February 12, 2025 Pre & Post Diagnosis Operation Date: 02/12/25 09:00 Pre-Op Diagnosis: Acute Cholecystitis Post-Op Diagnosis: Acute Cholecystitis I identified the patient and participated in the time-out.: Yes Procedure Operation Date: 02/12/25 09:00 Actual Procedures p Laparoscopic Cholecystectomy with Intraoperative Cholangiogram(Not Applicable) - Sebastian Diaz MD, FACS Surgeon Sebastian Diaz MD, FACS Process Control Programmer Tricia MELO Estimated Blood Loss 20 Findings Consistent with Post-Op Diagnosis Drains Jaret-Borrego Drain
--- NOTE | 2025-02-12 11:06 | Operative Report ---
PG Post Operative Report Pre & Post Diagnosis Operation Date: 02/12/25 09:00 Pre-Op Diagnosis: Acute Cholecystitis Post-Op Diagnosis: Acute Cholecystitis I identified the patient and participated in the time-out.: Yes Procedure Operation Date: 02/12/25 09:00 Actual Procedures p Laparoscopic Cholecystectomy with Intraoperative Cholangiogram(Not Applicable) - Sebastian Diaz MD, FACS The patient was brought into the operating theater supine position general trach anesthesia the abdomen was prepped byline solution properly draped systemic antibiotics on board a timeout was hide the patient was identified we made a small incision supraumbilically introduced the standard Veress needle we identified that we were insufflated preperitoneal therefore we had to go to the extra long heavyset needle was able to put it into the abdominal cavity and CO2 insufflated followed by the scope point of entry inspected no injury identified we then placed a 5 mm epigastric port with preemptive local analgesic we used a standard port care and placed two 5 mm subcostal ports in a similar fashion placed the camera in the right upper quadrant port to visualize our initial entry into the abdomen with standard 5 mm trocar since we were not sure when intra-abdominal he there was no injury identified we had some preperitoneal insufflation no bleeding this point the gallbladder was identified it was edematous significant amount of fatty adhesions pretty much the whole gallbladder we aspirated it with an aspirating needle and found clear bile indicating hydrops of the gallbladder once we had sufficiently evacuated the retracted cephalad and laterally and worked our way by stripping all this fatty tissue that was on top of the gallbladder all the way down to the neck of the gallbladder with so much fatty tissue around that area the first thing we noticed was a large lymph node of Calot and at this point we dissected more laterally and could identify a large duct coming off the gallbladder itself it was hard to tell whether or not there is a large size that we were elevating the common bile duct therefore at this point the large grasper I held the takeoff of this large duct and injected contrast directly into it with aspirating needle and x-ray revealed that we were very small cystic duct distally common bile duct was small similarly this gave us an idea of exactly where we were therefore we continued our dissection dist stability identified a small artery clipped approximately and distally then we dissected time where the cystic duct appeared to be smaller and a clip 5 mm was placed proximally small opening cystic duct was made in #4 urethral catheter transversing abdominal wall was positioned in the cystic duct x-rays were taken which showed a very long cystic duct actually coming over a medial to the common bile duct but there was no filling defect and no common bile duct filling defects at this point we remove the catheter and clipped the cystic duct twice with 5 mm clips with continued our dissection identifying larger artery at the takeoff of the gallbladder and doubly clipped proximally once distally most of her dissection was done bluntly to the significant edema that the patient had at the wall of the gallbladder we used electrocautery to cauterize some bleeders as we went along once the gallbladder was completely freed from the liver we placed in an Endopouch and taken out through the epigastric port we needed to enlarge the incision on the skin and also diving out the intra-abdominal cavity to accommodate this edematous gallbladder and contents but we were able to remove it in total patient has significant amount of cholesterol stones once this had been completed the subhepatic suprahepatic area was then checked hemostasis again it appeared quite satisfactory due to significant inflammation and she had not blunt dissection I elected to drain the subhepatic area when it 19 Aaron drain, immediately taken to the right upper quadrant lateral trocar site prior to doing this we placed the camera back in the this right upper quadrant lateral trocar site to again visualized the first entry into the abdomen and no injury identified the catheter then was sutured to the skin edge with 2-0 silk suture placed states subhepatic leak we closed the wound with 4-0 Monocryl Steri-Strips applied procedure tolerated well by the patient estimate blood loss 20 cc Addendum Blanca Day physician assistant to the vice president was present throughout the case and helped the retraction exposure wound closure I went to the waiting area after the procedure her sister son was supposed to be there there was no one there and I have no phone number to call Surgeon Sebastian Diaz MD, FACS Forest Supervisor Tricia MELO Estimated Blood Loss 20 Findings Consistent with Post-Op Diagnosis Acute edematous gallbladder hydrops Specimens Gallbladder and contents Drains 19 Aaron subhepatic Complications None Indications Acute cholecystitis cholelithiasis Description of Procedure merda I attest to the content of the Intraoperative Record and any orders documented therein. Any exceptions are noted below.
--- NOTE | 2025-02-12 11:17 | Hospitalist Progress Note ---
Date of Service February 12, 2025 Assessment & Plan (1) Acute cholecystitis: Plan: 49-year-old female with past med history significant for prediabetes and morbid obesity comes because of right side abdominal pain and nausea and vomiting. #Acute cholecystitis Presents with right sided abdominal pain and nausea and vomiting CT scan showing moderate gallbladder distention, mild gallbladder wall thickening and minimal pericholecystic stranding consistent with cholecystitis S/P Lap ailyn with intraoperative cholangiogram, by Dr. Diaz Continue IV antibiotics per surgery, currently on IV zosyn Diet/activity per general surgery #Hypokalemia: replace #Morbid obesity Patient is on Zepbound with 40lb weight loss thus far Encourage pt to discuss with her prescribing provider regarding whether to continue #Prediabetes a1c 5.3 #DVT prophylaxis SCDs #Disposition Medical floor, await for surgical clearance for discharge, suspect by tomorrow Full code. PCP: Dr. Irving Pt was seen and examined in collaboration with Dr. Leary, please see addendum I spent a total of 46 minutes coordinating, documenting and providing care for this patient excluding time spent in the performance of separately billed services or time spent by another provider/QHP. This was not a billable service due to pt being admitted after 00:00 on 02/13/24. Admission and Anticipated Discharge Date Admission Date: February 12, 2025 Supervising Physician Co-Signing Physician Notes I have seen and discussed the case with the collaborating advanced practitioner. I agree with the above porgress note.. I have reviewed and confirmed the patients medical history, the findings on physical examination, and the patients diagnosis and treatment plan with Derek ALDANA and agree with the information documented. Ms. Lucio is a 49 yo female admitted for acute cholecystitis. s/p lap ailyn 02/12. will monitor post operatively possible dispo tomorrow I have reviewed the advanced practitioner's documentation, and I agree with, and take responsibility for the plan of care Subjective Pt was seen and examined in room 359-1. She is NPO for upcoming procedure. She reports RUQ/Epigastric abd pain with pressure, but at rest it is absent. Currently she denies N/V, f/c/s, chest pain or SOB. We discussed her Zepbound. Her dose was due yesterday. We discussed the risk associated with semaglutide and gallbladder disease. She reports strong FH of gallbladder disease. She also reports sx back in her late 20s that she treated with low fat diet. Review of Systems Review of Systems: All systems reviewed & are unremarkable except as noted in HPI & below Physical Exam Physical Exam: Gen: WD/WN, obese, F, lyingin bed, appears comfortable, NAD, A&O x3 HEENT: Normocephalic, atraumatic, conjunctivae moist, sclerae anicteric, mucous membranes moist. Lung: Clear to Auscultation bilaterally, no wheezes/rales/rhonchi Heart: Regular rate, regular rhythm, no murmurs, rubs, or gallops Abdomen: Soft,ND +BS x 4, TTP RUQ Extremities: No edema Skin: Warm, no rash, negative turgor. Results & Data Results & Data Vital Signs (Past 12 Hours) Vital Signs Temp Pulse Pulse Pulse Resp BP BP 02/12/25 06:58 36.8 C 83 16 111/71 02/12/25 04:07 37.5 C 18 106/69 02/12/25 03:51 37.5 C 71 16 106/69 02/12/25 02:57 69 18 02/12/25 01:12 74 13 136/81 02/12/25 00:03 70 15 130/84 02/11/25 23:32 71 BP Pulse Ox O2 Del Method 02/12/25 06:58 92 Room Air 02/12/25 04:07 93 Room Air 02/12/25 03:51 93 Room Air 02/12/25 02:57 134/79 95 Room Air 02/12/25 01:12 94 Room Air 02/12/25 00:03 94 Room Air 02/11/25 23:32 Laboratory Results I have independently reviewed and interpreted patient's CBC, BMP Medications Administered Current Inpatient Medications Albuterol (Albuterol Hfa 8 Gm Inhaler) 2 puffs INH Q6H PRN PRN Reason: Shortness Of Breath Or Wheezin Stop: 03/14/25 03:50 Atropine Sulfate (Atropine Sulfate 0.1 Mg/Ml 10ml Syr) 0.5 mg IV Q1M PRN PRN Reason: PACU Use-HR<40 &/or Bradycardi Stop: 02/12/25 16:57 Cetirizine HCl (Cetirizine Hcl 10 Mg Tablet) 10 mg PO DAILY PRN PRN Reason: Allergic Symptoms Stop: 03/14/25 03:50 Ephedrine Sulfate (Ephedrine Sulfate 50 Mg/Ml Amp) 5 mg IV Q5M PRN PRN Reason: PACU Use Only-SBP<90 mmHg Stop: 02/12/25 16:57 Fentanyl Citrate (Fentanyl Citrate Pf 100 Mcg/2 Ml Vial) 25 mcg IV Q5M PRN PRN Reason: PACU Use Only-Pain Stop: 02/12/25 16:57 Flumazenil (Flumazenil 0.1 Mg/1 Ml 10 Ml Vial) 0.2 mg IV Q2M PRN PRN Reason: PACU Use Only-Benzo Reversal Stop: 02/12/25 16:57 Hydromorphone HCl (Hydromorphone Inj 0.5 Mg/0.5 Ml Syr) 0.25 mg IV Q4H PRN PRN Reason: Moderate Pain (Scale 4, 5, 6) Stop: 02/26/25 03:50 Hydromorphone HCl (Hydromorphone Inj 0.5 Mg/0.5 Ml Syr) 0.5 mg IV Q4H PRN PRN Reason: Severe Pain (Scale 7, 8, 9,10) Stop: 02/26/25 03:50 Hydromorphone HCl (Hydromorphone Inj 1 Mg/Ml Syringe) 0.25 mg IV Q5M PRN PRN Reason: PACU Use Only-Pain Stop: 02/12/25 16:57 Sodium Chloride (Nss) 1,000 mls @ 125 mls/hr IV .Q8H LUANA Stop: 02/13/25 03:50 Last Admin: 02/12/25 04:32 Dose: 125 mls/hr Piperacillin Sod/Tazobactam Sod (Zosyn) 4.5 gm in 100 mls @ 25 mls/hr IV Q8H LUANA; Protocol Stop: 02/22/25 05:59 Last Admin: 02/12/25 09:07 Dose: 25 mls/hr Promethazine HCl 6.25 mg/ (Sodium Chloride) 50.25 mls @ 204 mls/hr IV ONCE PRN PRN Reason: PACU Use Only-Nausea/Vomiting Stop: 02/12/25 16:57 Labetalol HCl (Labetalol Hcl Iv 5 Mg/Ml 20ml) 5 mg IV Q5M PRN PRN Reason: PACU Use-SBP>160 or DBP>100 Stop: 02/12/25 16:57 Naloxone HCl (Naloxone Hcl 0.4 Mg/1 Ml Vial/Carp) 0.2 mg IV Q2M PRN PRN Reason: PACU Use Only-Opiate Reversal Stop: 02/12/25 16:57 Ondansetron HCl (Ondansetron Inj 2 Mg/Ml 2 Ml Vial) 4 mg IV Q6H PRN PRN Reason: Nausea Stop: 03/14/25 03:50 Ondansetron HCl (Ondansetron Inj 2 Mg/Ml 2 Ml Vial) 4 mg IV ONCE PRN PRN Reason: PACU Use Only-Nausea/Vomiting Stop: 02/12/25 16:57
[2025-02-12] MEDS ORDERED: Nursing to Pharmacy Communication SCH (12:00)
--- NOTE | 2025-02-12 12:00 | Anesthesiology Progress Note ---
Date of Service February 12, 2025 Anesthesia Post Procedure Vital Signs Vital Signs: Temp Pulse Pulse Pulse Pulse Resp BP 02/12/25 11:55 73 16 02/12/25 11:45 71 12 02/12/25 11:35 36.7 C 75 12 02/12/25 11:25 81 16 02/12/25 11:15 83 14 02/12/25 11:08 36.0 C L 95 H 20 02/12/25 06:58 36.8 C 83 16 02/12/25 04:07 37.5 C 18 02/12/25 03:51 37.5 C 71 16 02/12/25 02:57 69 18 02/12/25 01:12 74 13 136/81 02/12/25 00:03 70 15 130/84 02/11/25 23:32 71 02/11/25 23:00 76 20 02/11/25 22:00 75 16 02/11/25 20:32 85 17 02/11/25 19:40 72 02/11/25 18:42 70 20 02/11/25 18:35 36.0 C L 85 20 190/100 H BP BP Pulse Ox O2 Del Method O2 Flow Rate 02/12/25 11:55 134/91 93 Room Air 02/12/25 11:45 150/89 H 93 Room Air 02/12/25 11:35 148/94 H 93 Room Air 02/12/25 11:25 149/85 H 95 Oxymask 2 02/12/25 11:15 157/92 H 96 Oxymask 4 02/12/25 11:08 157/85 H 94 Oxymask 6 02/12/25 06:58 111/71 92 Room Air 02/12/25 04:07 106/69 93 Room Air 02/12/25 03:51 106/69 93 Room Air 02/12/25 02:57 134/79 95 Room Air 02/12/25 01:12 94 Room Air 02/12/25 00:03 94 Room Air 02/11/25 23:32 02/11/25 23:00 95 02/11/25 22:00 118/76 92 Room Air 02/11/25 20:32 135/85 95 Room Air 02/11/25 19:40 02/11/25 18:42 99 Room Air 02/11/25 18:35 99 Room Air Pain Intensity Right Abdomen: Pain Intensity: 7 Transfer of Care Handoff Completed per policy Notes Mental Status: alert / awake / arousable Patient Amnestic to Procedure: Yes Nausea / Vomiting: adequately controlled Pain: adequately controlled Airway Patency, RR, SpO2: stable & adequate BP & HR: stable & adequate Hydration State: stable & adequate Anesthetic Complications: no major complications apparent
[2025-02-12] MEDS ORDERED: oxyCODONE HCL IR 5 MG TAB (IMMEDIATE RELEASE) PO PRN (12:04)
[2025-02-12] MEDS: POTASSIUM CHLORIDE / WTR 10 MEQ/100 ML PLCT IV SCH (13:10)
[2025-02-12] MEDS: oxyCODONE HCL IR 5 MG TAB (IMMEDIATE RELEASE) PO PRN (13:10)
[2025-02-12] MEDS ORDERED: ACETAMINOPHEN 325 MG TAB PO PRN (14:31)
[2025-02-12] MEDS ORDERED: POTASSIUM CHLORIDE CRTAB 20 MEQ TABCR PO STA (15:22)
[2025-02-12] MEDS: POTASSIUM CHLORIDE CRTAB 20 MEQ TABCR PO SCH (18:34)
[2025-02-12] MEDS: HYDROmorphone INJ 0.5 MG/0.5 ML SYR IV PRN (19:46)
[2025-02-13 06:55] LABS: Basophils # (auto) 0.02 K/uL (0.00-0.20); Basophils % (auto) 0.1 %; Hematocrit (blood only) 39.5 % (37.0-47.0); Hemoglobin 13.5 g/dl (12.0-16.0); Immature Granulocytes # (auto) 0.12 K/uL (0.01-0.20); Immature Granulocytes % (auto) 0.7 %; Lymphocytes # (auto) 2.88 K/uL (1.20-3.40); Lymphocytes % (auto) 17.3 %; Mean Corpuscular Hemoglobin 31.5 pg (25.0-34.0); Mean Corpuscular Hgb Conc 34.2 g/dL (32.0-36.0); Mean Corpuscular Volume 92.3 fL (80.0-100.0); Mean Platelet Volume 10.4 fL (9.4-12.4); Monocytes # (auto) 0.85 K/uL (0.11-0.59); Monocytes % (auto) 5.1 %; Neutrophils # (auto) 12.78 K/uL (1.40-6.50); Neutrophils % (auto) 76.8 %; Platelet Count 286 K/uL (130-400); RDW Coefficient of Variation 12.8 % (11.5-14.5); RDW Standard Deviation 43.3 fL (36.4-46.3); Red Blood Count 4.28 M/uL (4.20-5.40); White Blood Count 16.65 K/ul (4.8-10.8)
[2025-02-13 07:15] VITALS: O2SAT 94
[2025-02-13 07:19] LABS: Albumin Globulin Ratio 1.4 (0.9-2); Albumin Level 3.6 gm/dl (3.4-5.0); BUN Creatinine Ratio 7.6 (10-20); Bilirubin,Total 0.5 mg/dl (0.2-1.0); Calcium 8.2 mg/dl (8.6-10.3); Creatinine Clr Calc Pharmacy 137.1 ml/min; Globulin 2.6 gm/dl (2.5-4.0); Potassium 3.8 mmol/L (3.5-5.1); Total Protein 6.2 gm/dl (6.0-8.3)
[2025-02-13] MEDS: CALCIUM GLUCONATE 1,000 MG/60 ML BAG IV STA (09:56)
--- NOTE | 2025-02-13 11:01 | Discharge Summary ---
Discharge Summary Date of Service February 13, 2025 Principal Dx & Hospital Course #1 = Principal Diagnosis (1) Acute cholecystitis: 49-year-old female with past med history significant for prediabetes and morbid obesity comes because of right side abdominal pain and nausea and vomiting. #Acute cholecystitis Presents with right sided abdominal pain and nausea and vomiting CT scan showing moderate gallbladder distention, mild gallbladder wall thickening and minimal pericholecystic stranding consistent with cholecystitis S/P Lap ailyn with intraoperative cholangiogram, by Dr. Diaz POD #1 Continue drain management per surgery To complete an additional 5 days or oral augmentin at discharge Recommend resume regular diet and activity as tolerated #Hypokalemia: replaced #Hypocalcemia: ca and ionized ca low, will give 1g calcium gluconate today. recommend daily calcium supplement of 500mg daily #Vitamin D def: Vit D level 25. Recommend daily supplement of 1,000 I. U. Daily #Morbid obesity Patient is on Zepbound with 40lb weight loss thus far Appears as though sx were present prior to starting the zepbound Encourage pt to discuss with her prescribing provider regarding when to resume vs discontinue #Prediabetes a1c 5.3 #DVT prophylaxis SCDs #Disposition Discharge to home today after she is seen by general surgery Full code. PCP: Dr. Irving Pt was seen and examined in collaboration with Dr. Leary, please see addendum I spent a total of 47 minutes coordinating, documenting and providing care for this patient excluding time spent in the performance of separately billed services or time spent by another provider/QHP. Notes For Next Care Provider Recommend checking a cbc, cmp at discharge follow up. WBC was 16k at discharge. Vitamin D level was 25. Recommend repeat in 3 months after supplmentation. Medication Changes From Visit * Amoxicillin Clavulanate 875mg by mouth twice daily for additional 5 days. Next dose due in the evening on 02/13/25. * Oxycodone 5mg every 6 hours as needed for severe pain. * It is recommended you utilize Tylenol 500mg every 4-6 hours for mild to moderate pain. * If you are taking Oxycodone please take a stool softener as well. Oxycodone will cause constipation. * Your Vitamin D and Calcium was low during your hospital stay. Please start a daily vitamin D supplement of 1,000 I.U. Daily along with a daily calcium of 500mg. Admission HPI Per Admitting Provider 49-year-old female with past med history significant for prediabetes and morbid obesity comes because of right side abdominal pain and nausea and vomiting. Patient states abdominal pain started yesterday morning in the right upper quadrant region. At 11 AM patient started have a lot of nausea and vomiting. She was vomiting bile. Pain was very severe. Was feeling hot and cold. No diarrhea. Did did not micturate much because of poor oral intake. Denies chest pain or shortness of breath. No cough. No runny nose or sore throat. No earaches. Hemodynamics are okay.Patient is currently on Zepbound. Past medical history. As mentioned above Past surgical history. Colonoscopy. D&C after delivery. IUD insertion. Right knee arthroscopy. Social history. Quit smoking 2016. Smoked 0.3 pack a day for 7.9 years. Alcohol 1 drink of alcohol per week per epic. No drug use. Family history. Brother has hematochromatosis. Brother has diabetes. Father has hypertension. Mother has thyroid disorder. Paternal grandmother had breast cancer. Paternal grandfather had heart disorder. Aunt has diabetes. Admission Exam Per Admitting Provider General- Not in distress. Head- atraumatic Eyes- PERRL. ENT- oropharynx clear Neck- supple, no JVD. Lungs- clear to auscultation no wheezing or crackles Heart- regular rhythm; no murmur, no gallop. Abdomen- normal bowel sounds, soft, mild ruq tenderness, no guarding, no distension. Extremities- no pretibial edema, no erythema seen. Neuro- alert, oriented PERRL, no facial palsy; no dysarthria; moves extremities Discharge Exam Gen: WD/WN, obese, F, lyingin bed, appears comfortable, NAD, A&O x3 HEENT: Normocephalic, atraumatic, conjunctivae moist, sclerae anicteric, mucous membranes moist. Lung: Clear to Auscultation bilaterally, no wheezes/rales/rhonchi Heart: Regular rate, regular rhythm, no murmurs, rubs, or gallops Abdomen: Soft, mildly distended +BS x 4, incisions CDI, KIESHA drain with serosang drainage, dressing around KIESHA CDI Extremities: No edema Skin: Warm, no rash, negative turgor. Updated Medication List Medication Instructions Recorded Confirmed Type albuterol sulfate 90 mcg/actuation 2 puff inhalation Q6H PRN 02/12/25 02/12/25 History aerosol inhaler Shortness Of Breath Or Wheezing amoxicillin 875 mg-potassium 1 tab PO BID 5 days #10 tabs 02/12/25 Rx clavulanate 125 mg tablet cetirizine 10 mg tablet (Zyrtec) 10 mg PO DAILY PRN Allergic 02/12/25 02/12/25 History Symptoms oxycodone 5 mg tablet 5 - 10 mg (1 - 2 x 5 mg) PO 02/12/25 Rx .[id number] PRN pain, for initial therapy, max 6 tabs per day #12 tabs cholecalciferol (vitamin D3) 25 25 mcg PO QAM #30 caps 02/13/25 Rx mcg (1,000 unit) capsule Hospital Stay Data Consultations 02/12/25 00:33 ED Decision to Admit Stat 02/12/25 08:00 Consult General Surgery Routine Procedures Performed Operation Date: 02/12/25 09:00 Actual Procedures p Laparoscopic Cholecystectomy with Intraoperative Cholangiogram(Not Applicable) - Sebastian Diaz MD, FACS Diagnostic Imagining Performed 02/11/25 19:23 CT abd pelvis IV con only Stat 02/12/25 08:30 [place] cholangiogram OR Routine Pending Results Patient Have Any Pending Studies at Discharge: Yes Discharge Instructions Given to Patient (Per Discharging Provider) New Medications: * Amoxicillin Clavulanate 875mg by mouth twice daily for additional 5 days. Next dose due in the evening on 02/13/25. * Oxycodone 5mg every 6 hours as needed for severe pain. * It is recommended you utilize Tylenol 500mg every 4-6 hours for mild to moderate pain. * If you are taking Oxycodone please take a stool softener as well. Oxycodone will cause constipation. * Your Vitamin D and Calcium was low during your hospital stay. Please start a daily vitamin D supplement of 1,000 I.U. Daily along with a daily calcium of 500mg. SPECIAL CARE INSTRUCTIONS: DRAIN Please care for your KIESHA drain as you have been instructed prior to discharge from the hospital. Empty drain 2-3x/daily and record output, bring a log with you to the office. Otherwise keep drain to bulb suction. * You will have small white bandages on that are over your incisions, called steri strips. You may shower with these on. They will tend to fall off on their own within 7-10 days. * You sponge bath until your drain is returned. NO soaking in pools or baths for 2 weeks * No lifting greater than 10lbs. No strenuous exercise until cleared by surgeon. Light walking is accepted. * No driving while taking narcotic pain medication; wait at least 3 days * No drinking alcohol while taking narcotic pain medication * May use Ibuprofen/Tylenol over the counter for pain as tolerated. Do not exceed 3grams of Tylenol per 24 hours * Expect some swelling and bruising. * Diet- you may resume your regular diet * Please complete the full course of antibiotic prescribed to you Call your doctor if: * Temperature above 101 degrees, nausea/vomiting, fever/chills * Pain not relieved by pain medicine ordered * There is increased drainage or redness from any incision * You have any unanswered questions or concerns [phone]. FOLLOW UP VISIT: If not already scheduled, please call the office for a follow-up visit. Office Please contact Primary Care Provider for a follow up within 7 days of discharge. I recommend you have your CBC (blood counts) and CMP (Electrolytes, kidney and liver functions) repeated at this follow up. I recommend you have your calcium and vitamin D levels re checked in 3 months. Total Time Total Time Spent Total Time Spent (In Minutes): 47 minutes Supervising Physician Co-Signing Physician Notes I have seen and discussed the case with the collaborating advanced practitioner. I agree with the above discharge. I have reviewed and confirmed the patients medical history, the findings on physical examination, and the patients diagnosis and treatment plan with Derek ALDANA and agree with the information documented. In short, Ms. Lucio is a 49 yo woman s/p lap ailyn on 02/12. No post operative complications and patient was eating well and ambulating s/p procedure. Agree with 5 more days abx. Evaled by Gen Surg--dispo cleared with planned follow up for drain removal I spent a total of 5 minutes coordinating, documenting, and providing care for this patient excluding time spent in the performance of separately billed services. All of the aforementioned completed outside of collaborating with the assigned advanced practitioner for a full treatment plan. I have reviewed the advanced practitioner's documentation, and I agree with, and take responsibility for the plan of care
[2025-02-13 11:31] VITALS: BP 129/80; PULSE 71; RESP 16; TEMP 98.6
[2025-02-13] MEDS: CHOLECALCIFEROL 25 MCG (1000 UNITS) TAB PO SCH (13:38)
--- NOTE | 2025-02-13 13:49 | Surgery Progress Note ---
Date of Service February 13, 2025 Assessment & Plan (1) Acute cholecystitis: Plan: pod 1 lap ailyn , jennifer drain placement Expected post surgical discomfort, tolerating diet VSS , WBC elevated at 16 likely reactive , pt to take course of oral ABX on d/c sent to pharmacy LFT wnl Home with JENNIFER drain , f/u in office op one week pt seen and examined with Dr Collazo Admission and Anticipated Discharge Date Admission Date: February 12, 2025 Subjective denies n/v expected post surgical discomfort Review of Systems Gastrointestinal: + abdominal pain; no nausea and no vomit ing Physical Exam Constitutional: cooperative and comfortable; no acute distress Respiratory: normal respiratory effort; no respiratory distress Cardiovascular: Rate/Rhythm: regular rate Gastrointestinal (Abdomen): Inspection/Auscultation: + abdominal surgical incision (steri strips ) and + abdominal surgical drain present; abdomen not distended Results & Data Vital Signs (Past 12 Hours) Vital Signs Temp Pulse Resp BP Pulse Ox O2 Del Method 02/13/25 11:29 98.6 F 71 16 129/80 94 Room Air 02/13/25 07:15 98.4 F 68 18 131/82 94 Room Air 02/13/25 02:34 98.1 F 72 16 114/71 93 Room Air Results CBC w Diff Results: RBC 4.28 M/uL (4.20-5.40) 02/13/25 WBC 16.65 K/ul (4.8-10.8) H 02/13/25 Hgb 13.5 g/dl (12.0-16.0) 02/13/25 Hct 39.5 % (37.0-47.0) 02/13/25 MCV 92.3 fL (80.0-100.0) 02/13/25 MCH 31.5 pg (25.0-34.0) 02/13/25 MCHC 34.2 g/dL (32.0-36.0) 02/13/25 RDW Standard Deviation 43.3 fL (36.4-46.3) 02/13/25 RDW Coefficient of Variation 12.8 % (11.5-14.5) 02/13/25 Plt Count 286 K/uL (130-400) 02/13/25 MPV 10.4 fL (9.4-12.4) 02/13/25 Neutrophils (%) (Auto) 76.8 % 02/13/25 Lymphocytes (%) (Auto) 17.3 % 02/13/25 Monocytes # (Auto) 0.85 K/uL (0.11-0.59) H 02/13/25 Eosinophils # (Auto) 0.00 K/uL (0.00-0.50) 02/13/25 Immature Granulocyte % (Auto) 0.7 % 02/13/25 Neutrophils # (Auto) 12.78 K/uL (1.40-6.50) H 02/13/25 Lymphocytes # (Auto) 2.88 K/uL (1.20-3.40) 02/13/25 Monocytes # (Auto) 0.85 K/uL (0.11-0.59) H 02/13/25 Eosinophils # (Auto) 0.00 K/uL (0.00-0.50) 02/13/25 Basophils # (Auto) 0.02 K/uL (0.00-0.20) 02/13/25 Immature Granulocyte # (Auto) 0.12 K/uL (0.01-0.20) 5 PG Care Time/CCT Total # of Minutes Spent Total Time Spent with Patient: Total time spent is greater than 50% in coordination of care (as documented) at patient's floor/unit and/or counseling patient: Coding Level of Care Code 50934 Post Operative Follow-Up Diagnoses Acute cholecystitis K81.0
--- NOTE | 2025-02-14 13:42 | Fluoroscopy Report ---
[place] cholangiogram OR CLINICAL HISTORY: CHOLANGIOGRAM COMPARISON STUDY: None Fluoroscopy time: 4 seconds. Dose: 1.14 mgy FINDINGS: Contrast opacifies a nondilated common bile duct and progresses promptly to the small bowel . No common bile duct stone seen. IMPRESSION: Normal intraoperative cholangiogram. ACT 112: Negative or not required by law. Electronically signed by: Adalid Read M.D. 02/14/2025 1:41 PM
== END 2025-02-13 14:20 | disposition home or self-care (01) | DRG 419 ==
LOC: ED 18:31 → INTOOBSV 02-12 02:31 → 3W 02-12 02:31